=== PATIENT | female | born 1940 | race African-American/Black ===

== ENCOUNTER 2020-05-25 20:45 | Emergency (ER) | payer MEDICARE ==
[~2020-05-25] VITALS: Ht 147.3 cm; Wt 68.1 kg
[2020-05-25 20:50] VITALS: BP 156/81
--- NOTE | 2020-05-25 21:16 | PHYS DOC ---
Adult General Chief Complaint Chief Complaint: KNEE INJURY HPI HPI Patient is a 79-year-old female, with a past medical history of bilateral knee replacements who presents with a chief complaint of left knee pain. States the knee replacements were 10 years ago and she is had no issues with these. States she was at the gym, just before coming to the ED doing a Dom class. States that during the class she began to have some pain in her knee, sharp in nature, 5 out of 10. States she was able to essentially complete the class but had some pain when stepping down so decided to come to the emergency department. Denies any other injuries, traumas or falls. Review of Systems Review of Systems Review of systems otherwise unremarkable except noted in HPI Physical Exam Physical Exam Constitutional: Well developed, well nourished, no acute distress, non-toxic appearance. [] Cardiovascular:Heart rate regular rhythm, no murmur [] Lungs & Thorax: Bilateral breath sounds clear to auscultation [] Skin: Warm, dry, no erythema, no rash. [] Back: No tenderness, Extremities: Patient has scars on knees bilaterally with right knee having complete function and no pain. Left knee does appear a little bigger/more swollen than the right knee but without any warmth or obvious effusion. No obvious deformities. Neurovascular exam intact. On range of motion of the left knee, patient has pain and says she cannot move it due to pain. Neurologic: Alert and oriented X 3, normal motor function, normal sensory function, no focal deficits noted. [] Psychologic: Affect normal, judgement normal, mood normal. [] EKG EKG [] Radiology/Procedures Radiology/Procedures []There is prior left knee total arthroplasty. The femoral tibial components are aligned and well seated. There is a moderate size joint effusion. There are multiple densities projecting over the joint space inferiorly. There is no interruption of cortex to suggest a fracture. IMPRESSION: 1. Prior left knee total arthroplasty. 2. Dense effusion suggesting hemarthrosis but no fracture is seen. 3. Probable multiple small loose bodies. Electronically signed by: Gualberto Guerra III, MD (05/25/2020 9:40 PM) [facility] Heart Score Risk Factors: Risk Factors: DM, Current or recent (<one month) smoker, HTN, HLP, family history of CAD, obesity. Risk Scores: Risk Factors: DM, Current or recent (<one month) smoker, HTN, HLP, family history of CAD, obesity. Course & Med Decision Making Course & Med Decision Making Patient is a 79-year-old female who presents with left knee pain Vital signs not concerning. Physical exam noted above. Patient given ice, Tylenol and ibuprofen. Imaging with no acute osseous abnormalities but did show effusion. Patient placed in a knee immobilizer. Given crutches and advised nonweightbearing. Gave pain control recommendations for home. Advised to call primary care physician first thing in the morning to discuss ED visit and set up post ER follow-up visit. Advised to call [facility] orthopedics also first thing in the morning to set up a follow-up visit as soon as possible and given contact information. Gave strict return precautions to the ED. Family grateful, verbalized understanding and agreed with plan of discharge. [] Dragon Disclaimer Dragon Disclaimer This electronic medical record was generated, in whole or in part, using a voice recognition dictation system. Departure Departure: Impression: Primary Impression: Left knee pain Disposition: 01 DC HOME SELF CARE/HOMELESS Condition: IMPROVED Referrals: SABRINA BAEZ MD (PCP) Patient Instructions: Knee Effusion, [id number], Knee Pain, [id number], RICE - Routine Care for Injuries Additional Instructions: Please read all the attached information. Please begin a Tylenol, ibuprofen and ice regimen at home. You are placed in a knee immobilizer, which should be on at most times. You can loosen occasionally when laying down but please do not ambulate without this on and your crutches. Please follow-up with your primary care physician as soon as you can. Please contact [facility] at [phone] to discuss your ED visit and set up a follow-up visit. Please come back to the ED with new or concerning symptoms. SCOTT ESCALERA MD May 25, 2020 21:16
--- NOTE | 2020-05-25 21:42 | RAD ---
4 view left knee HISTORY: Pain status post injury AP lateral oblique and sunrise views left knee There is prior left knee total arthroplasty. The femoral tibial components are aligned and well seate d. There is a moderate size joint effusion. There are multiple densities projecting over the joint sp jennifer inferiorly. There is no interruption of cortex to suggest a fracture. IMPRESSION: 1. Prior left knee total arthroplasty. 2. Dense effusion suggesting hemarthrosis but no fracture is seen. 3. Probable multiple small loose bodies. Electronically signed by: Gualberto Guerra III, MD (05/25/2020 9:40 PM) [facility]
[2020-05-25] MEDS ORDERED: ACETAMINOPHEN 325 MG TABLET PO ONE (22:00)
[2020-05-25] MEDS ORDERED: IBUPROFEN 600 MG TABLET. PO ONE (22:00)
== END 2020-05-25 22:10 | disposition home or self-care (01) ==
LOC: ER 20:45
DX: M25.562 Pain in left knee (principal); Z96.653 Presence of artificial knee joint, bilateral
CPT/HCPCS: 29505; 73564; 99283